=== PATIENT | male | born 1995 | race Caucasian/White ===

== ENCOUNTER 2022-02-18 19:53 | Emergency (ER) | payer MEDICAID ==
[~2022-02-18] VITALS: Ht 175.3 cm; Wt 97.0 kg
[2022-02-18] MEDS ORDERED: IBUPROFEN 600MG TABLET PO ONE (22:15)
[2022-02-18] MEDS ORDERED: TETRACAINE 0.5% OPHTH DROPS 4ML BOTHEYE ONE (22:15)
[2022-02-18] MEDS ORDERED: FLUORESCEIN SODIUM 1MG/STRIP BOTHEYE ONE (22:15)
[2022-02-18] MEDS ORDERED: KETO5DRO80 RIGHTEYE (22:58)
[2022-02-18] MEDS ORDERED: OFLO5DRO3 RIGHTEYE (22:58)
[2022-02-18 23:05] VITALS: BP 117/75
== END 2022-02-18 23:09 | disposition home or self-care (01) ==
LOC: ER 19:53
DX: S05.01XA Injury of conjunctiva and corneal abrasion without foreign body, right eye, initial encounter (principal); X58.XXXA Exposure to other specified factors, initial encounter; Y93.89 Activity, other specified; Y92.89 Other specified places as the place of occurrence of the external cause; Y99.8 Other external cause status
CPT/HCPCS: 99284